=== PATIENT | male | born 2000 | race African-American/Black ===

== ENCOUNTER 2022-10-24 15:08 | Inpatient (IN) | payer MEDICAID, SELFPAY ==
[2022-10-24] VITALS (49 sets, daily range): BP systolic 104–138; BP diastolic 47–97; PULSE 122–165; RESP 16–44; TEMP 36.5; O2SAT 74–100
--- NOTE | ~2022-10-24 | XR_ITS ---
EXAMINATION: XR chest 1V portable INDICATION: Asthma exacerbation TECHNIQUE: Portable AP chest at 1512 hours COMPARISON: 07/11/2016 FINDINGS: The lungs are free of acute opacities. No pleural effusion or pneumothorax. The cardiomedia stinal silhouette is normal. The visualized bones and soft tissues are unremarkable. IMPRESSION: 1. No acute cardiopulmonary abnormality. Reviewed, dictated and finalized at location A. [employer]
--- NOTE | 2022-10-24 15:04 | ED.SOB ---
HPI - SOB/Dyspnea General Chief Complaint: Shortness of Breath/Dyspnea Stated Complaint: SOB History of Present Illness HPI Narrative: Patient is a 22-year-old male with a history of asthma presenting with shortness of breath. On arrival, patient is in respiratory distress so history is somewhat limited. Patient states that he has been increasingly dyspneic over the last several days. States it feels like his typical asthma. States he has had cold-like symptoms as well. States he recently got a new inhaler which she has been using without relief. On arrival, patient is tachypneic in moderate respiratory distress with retractions. Saturating adequately on nonrebreather. Related Data Allergies Allergy/AdvReac Type Severity Reaction Status Date / Time peanut Allergy Severe Anaphylaxis Verified 10/25/22 05:33 banana Allergy Mild Itching Verified 10/25/22 05:33 Review of Systems Review of Systems: ROS unobtainable: Yes unobtainable due to medical condition PMFSH Family History Family History (Updated 10/25/22 @ 05:37 by Abbie Morse RN) Other Cerebrovascular accident Grandparent Diabetes mellitus Social History Social History Smoking status: Former smoker Tobacco type: cigarettes Second hand tobacco smoke exposure: Yes Alcohol intake: never Substance use: never Lack of Transportation: No Lack of Food: Never True Current Housing: I Do Not Have Housing Concerned About Future Housing: No Difficulty Paying Gas/Electric Bills: No Difficulty Paying for Meds: No Currently Unemployed: YES Education: High School Diploma/GED Difficulty w/ Childcare or Family Care: No Spiritual care concerns: No Exam Narrative: GENERAL: Young male in moderate respiratory distress HEAD: Normocephalic, atraumatic. EYES: PERRLA and EOMI. ENT: Nares clear, no rhinorrhea or epistaxis. Mucous membranes moist. NECK: Supple. CHEST: Diffuse wheezing, retractions, tachypneic HEART: Tachycardic, regular rhythm. No murmur heard. Normal peripheral pulses. ABDOMEN: Soft, nontender, nondistended, normal active bowel sounds. EXTREMITIES: Normal range of motion. No edema. SKIN: Warm, dry, no rash. NEURO: No focal deficits. Alert and oriented x3. PSYCH: Normal mood and affect. Course Vital Signs Vital signs: Vital Signs Temperature 97.7 F 10/24/22 15:02 Pulse Rate 160 H 10/24/22 15:02 Respiratory Rate 28 H 10/24/22 15:02 Temperature 97.8 F 10/25/22 08:00 Pulse Rate 120 H 10/25/22 08:00 Respiratory Rate 20 10/25/22 08:00 Blood Pressure 142/67 H 10/25/22 08:00 Pulse Oximetry 96 10/25/22 08:00 Oxygen Delivery Room Air 10/25/22 08:00 MDM - SOB/Dyspnea MDM Narrative Medical decision making narrative: Patient is a 22-year-old male presenting with an asthma exacerbation. On arrival, patient is in respiratory distress with diffuse wheezing. Steroids and hour-long breathing treatment have been ordered. Patient is tachycardic as well, saturating adequately on nonrebreather. Chest x-ray with no acute abnormalities. Patient is negative for COVID and influenza. Blood work is unremarkable. Patient continues to be very tight with diffuse wheezing despite 2 breathing treatments and IV steroids. Patient will be admitted to medicine for further management for asthma exacerbation. Lab Data 10/24/22 15:44 10/24/22 15:44 Labs: Lab Results 10/24/22 10/24/22 10/24/22 Range/Units 15:13 15:44 15:44 WBC 5.9 (4.5-10.0) K/mm3 RBC 5.95 (4.6-6.20) M/mm3 Hgb 13.9 L (14.0-18.0) g/dL Hct 44.5 (42.0-52.0) % MCV 74.8 L (80-100) fl MCH 23.4 L (26-34) pg MCHC 31.2 L (32-36) g/dl RDW 12.8 (11.5-14.5) % Plt Count 275 (150-375) k/mm3 MPV 10.1 (7.4-10.4) fl Immature Gran % (Auto) 0.2 (0-0.5) % Neut % (Auto) 58.7 (45.5-73.1) % Lymph % (Auto) 26.1 (18
[2022-10-24] MEDS: IPRATROPIUM BR 0.02% INH SOLN 0.5 MG/2.5 ML VIAL INHALATION ×2 (15:10→18:08)
[2022-10-24] MEDS: ALBUTEROL SULFATE NEB 2.5 MG/3 ML INH 10 MG INHALATION ×3 (15:10→19:48)
[2022-10-24] MEDS: methylPREDNISolone SOD SUCC 125 MG VIAL IV PUSH (15:22)
[2022-10-24] MEDS: MAGNESIUM SULF 2 GM/WATER 50ML 2 GM/50 ML BAG IVPB (15:26)
--- NOTE | 2022-10-24 15:33 | PC.NURSE ---
Patient with audible wheezing currently on breathing treatment.
--- NOTE | 2022-10-24 15:49 | PC.NURSE ---
Patient more relaxed and breathing easier at this time.
[2022-10-24 15:54] LABS: Influenza A QL RT-PCR Negative (Negative); Influenza B QL RT-PCR Negative (Negative); RSV RNA, RT-PCR Negative (Negative); SARS-CoV-2 RNA PCR Negative
[2022-10-24 16:02] LABS: Basophils Percent Auto 0.2 % (0.2-1.2); Eosinophils Absolute Auto 0.1 K/mm3 (0-0.3); Hematocrit 44.5 % (42.0-52.0); Hemoglobin 13.9 g/dL (14.0-18.0); Immature Granulocyte Absolute 0.01 K/mm3 (0.00-0.031); Immature Granulocyte Percent A 0.2 % (0-0.5); Lymphocytes Absolute Auto 1.55 K/mm3 (0.9-3.2); Lymphocytes Percent Auto 26.1 % (18.3-44.2); Mean Corpuscular HGB Conc 31.2 g/dl (32-36); Mean Corpuscular Hemoglobin 23.4 pg (26-34); Mean Corpuscular Volume 74.8 fl (80-100); Mean Platelet Volume 10.1 fl (7.4-10.4); Monocytes Absolute Auto 0.8 K/mm3 (0.1-0.6); Monocytes Percent Auto 12.8 % (2.6-8.5); Neutrophils Absolute Auto 3.5 K/mm3 (1.3-6.7); Neutrophils Percent Auto 58.7 % (45.5-73.1); Platelet Count Result 275 k/mm3 (150-375); Red Blood Count 5.95 M/mm3 (4.6-6.20); Red Cell Distribution Width 12.8 % (11.5-14.5); White Blood Count 5.9 K/mm3 (4.5-10.0)
[2022-10-24] MEDS: SODIUM CHLORIDE 0.9% IV 1,000 ML 999 ML IV CONT (16:06)
[2022-10-24 16:11] LABS: Alanine Aminotransferase 16 U/L (6-50); Alkaline Phosphatase 55 U/L (38-126); Anion Gap 12 mmol/L (8-16); Aspartate Amino Transferase 28 U/L (17-59); Bilirubin,Total 0.7 mg/dL (0.2-1.3); Blood Urea Nitrogen 9 mg/dL (9-20); Calcium 9.2 mg/dL (8.4-10.2); Carbon Dioxide 29 mmol/L (22-30); Chloride 96 mmol/L (98-107); Estimated CRCL calculation 100 ml/min; Estimated Glomerular Filt Rate > 60; Glucose 136 mg/dL (65-110); Potassium 3.7 mmol/L (3.4-5.0); Sodium 137 mmol/L (137-145)
[2022-10-24 16:24] LABS: Atypical Lymphocytes Present; Giant Platelets Present; Platelet Estimate Adequate (Adequate); Schistocytes None Seen (NORMAL)
--- NOTE | 2022-10-24 16:51 | PC.NURSE ---
reg diet dinner tray ordered
--- NOTE | 2022-10-24 17:26 | PC.NURSE ---
Lung sounds bilaterally diminished, inspiratory and expiratory wheeze noted.
--- NOTE | 2022-10-24 19:52 | PCRCNOTE ---
Cont TX started. Pt stated he is feeling better but SOB at rest and with movement. Breath sounds are diminished with bilateral inspiratory/expiratory wheeze present.
--- NOTE | 2022-10-24 20:15 | PM.IMHP ---
H&P: HPI History of Present Illness Date/Time: 10/24/22 20:15 Chief Complaint: sob Narrative: This is a 22-year-old male with past medical history significant for asthma. Patient presents to the emergency room due to worsening shortness of breath for the last 3-4 days he has been using his home medication with no improvement has had some cough nonproductive of sputum, denies any fevers, rigors, chills. Patient received nebulizer treatment in emergency room however still having lot of shortness of breath. Patient is been admitted for further evaluation management and treatment. Patient tested negative for influenza A and B RSV and COVID-19. Review of Systems Review of Systems: SHORTNESS OF BREATH, WHEEZING, COUGH Constitutional: Constitutional: Denies chills, Denies fever(s), Denies malaise, Denies night sweats and Denies weakness Eyes: Eyes: Denies change in vision ENT: Denies dysphagia, Denies vertigo, Denies dizziness and Denies odynophagia Cardiovascular: Cardiovascular: Denies chest pain, Denies irregular heart rhythm, Denies lightheadedness and Denies palpitations Respiratory: Respiratory: Denies change in phlegm color, Denies chest congestion, Reports cough, Denies excessive phlegm production, Denies pain on inspiration, Reports dyspnea and Reports wheezing Gastrointestinal: Gastrointestinal: Denies abdominal pain, Denies dyspepsia, Denies heartburn, Denies diarrhea, Denies nausea and Denies vomiting Genitourinary: Genitourinary: Denies dysuria Musculoskeletal: Musculoskeletal: Denies myalgias Integumentary/Breasts: Skin/Breast: Denies rash Neurologic: Denies vertigo, Denies dizziness, Denies focal weakness and Denies Sensory deficit (Neuro) Psychiatric: Psychiatric: Reports no additional psychiatric complaints and Reports as per HPI Endocrine: Endocrine: Denies cold intolerance, Denies flushing, Denies heat intolerance, Denies polyphagia, Denies polydipsia and Denies palpitations Hematologic/Lymphatic: Hematologic/Lymphatic: Reports no additional hematologic/lymphatic complaints and Reports as per HPI Allergic/Immunologic: Allergic/Immunologic: Reports no additional allergic/immunologic complaints and Reports as per HPI Meds Home Medications and Allergies Allergies Allergy/AdvReac Type Severity Reaction Status Date / Time peanut Allergy Unknown Verified 07/11/16 01:29 Vital Signs Vital Signs - 24 hr 10/24/22 15:02 10/24/22 15:26 10/24/22 15:27 Temperature 97.7 F Pulse Rate 160 H 165 H 152 H Respiratory Rate 28 H 27 H Blood Pressure Pulse Oximetry 10/24/22 15:37 10/24/22 15:46 10/24/22 16:01 Temperature Pulse Rate 149 H 145 H 139 H Respiratory Rate 22 H 16 21 H Blood Pressure 138/90 Pulse Oximetry 100 100 100 10/24/22 16:02 10/24/22 16:15 10/24/22 16:16 Temperature Pulse Rate 138 H 138 H 141 H Respiratory Rate 21 H 22 H 22 H Blood Pressure 138/69 Pulse Oximetry 100 100 100 10/24/22 16:26 10/24/22 18:08 10/24/22 16:17 Temperature Pulse Rate 149 H 126 H 138 H Respiratory Rate 24 H 19 22 H Blood Pressure Pulse Oximetry 100 10/24/22 16:30 10/24/22 16:31 10/24/22 16:45 Temperature Pulse Rate 132 H 134 H 140 H Respiratory Rate 20 20 25 H Blood Pressure 132/72 Pulse Oximetry 100 100 10/24/22 16:46 10/24/22 17:00 10/24/22 17:01 Temperature Pulse Rate 137 H 132 H 132 H Respiratory Rate 21 H 25 H 22 H Blood Pressure 113/97 H 120/47 L Pulse Oximetry 10/24/22 17:15 10/24/22 17:16 10/24/22 17:30 Temperature Pulse Rate 129 H 129 H 128 H Respiratory Rate 20 20 20 Blood Pressure 123/67 Pulse Oximetry 98 97 74 L 10/24/22 17:31 10/24/22 17:45 10/24/22 17:46 Temperature Pulse Rate 128 H 130 H 130 H Respiratory Rate 20 22 H 22 H Blood Pressure 126/50 L 104/48 L Pulse Oximetry 96 94 10/24/22 18:02 10/24/22 18:17 10/24/22 18:32 Temperature Pulse Rate 123 H 126 H 142 H Respiratory Rate 19 24 H 21 H B
[2022-10-24 21:58] LABS: Alveolar/Arterial O2 Gradient 135.4 mmHg; Base Excess ABG -3.1 mEq/l (+/-2.0); Fractional Inspired Oxygen 40 %; HCO3 ABG 22.3 mEq/l (22.0-26.0); Oxygen Content ABG 19.5 %vol (16.0-22.0); Oxygen Saturation ABG 97.4 % (95.0-100.0); Oxyhemoglobin 96.3 % THb (90.0-100.0); PCO2 ABG 41.2 mmHg (35.0-45.0); PO2 ABG 102.4 mmHg (80.0-100.0); PO2 FiO2 Ratio Arterial Blood 2.56 %; Total Hemoglobin 14.3 g/dL (12.0-18.0); pH ABG 7.352 (7.350-7.450)
[2022-10-24 22:02] LABS: Device OTHER DEVICE; Modified Allen's Test Pass; Site Drawn RIGHT RADIAL
[2022-10-25] VITALS (14 sets, daily range): BP systolic 122–142; BP diastolic 67–70; PULSE 109–125; RESP 20–22; TEMP 36.6–37.2; O2SAT 94–100; BMI 24.1
[2022-10-25] MEDS: methylPREDNISolone SOD SUCC 125 MG VIAL 60 MG IV PUSH ×2 (00:34→06:46)
[2022-10-25] MEDS: IPRATROPIUM BR 0.02% INH SOLN 0.5 MG/2.5 ML VIAL INHALATION ×2 (02:03→07:39)
[2022-10-25] MEDS: ALBUTEROL SULFATE NEB 2.5 MG/3 ML INH INHALATION ×2 (02:03→07:39)
--- NOTE | 2022-10-25 05:18 | ADMGEN ---
This patient, Savannah Gillis, was admitted to IMU Room 202-01 at 0107. Patient/family oriented to hospital policies and general routines including ID bracelet, bed and alarms, visiting hours, pain management, procedures, bathroom and other care routines, personal items, smoking policy, room service/diet, and visiting hours. Information on how to activate the Rapid Response Team has been discussed. Patient/Family are encouraged to report perceived risks to care and to ask questions if they do not understand what they are told or what they should do.
--- NOTE | 2022-10-25 09:37 | PM.DS ---
DS: Admitting Diagnosis Discharge Date 10/25/22 Admitting Diagnosis Acute exacerbation of asthma DS: Discharge Diagnosis Discharge Diagnosis (1) Asthma with exacerbation: Code(s): J45.901 - Unspecified asthma with (acute) exacerbation Status: Acute Assessment and Plan: admit to IMU schedule breathing treatments systemic steroids (2) Uncontrolled intermittent asthma: Code(s): J45.20 - Mild intermittent asthma, uncomplicated Status: Acute Assessment and Plan: patient might need adjustment of home meds will request pulmonology consult DS: Summary Hospital Course Reason for hospitalization: Acute exacerbation of asthma Hospital Course: 22 years old male was admitted with shortness of breath. Patient was found to have acute exacerbation of asthma. Patient chest x-ray was negative. Patient oxygenation was better after treatment. No complication during the stay in the hospital. Today patient was discharged home stable condition. Status at Discharge Cognitive/behavioral status at discharge: Stable Time Spent with Patient Time attestation: Total time spent providing and/or coordinating discharge services: Exam Narrative: patient is in a stretcher Const: General: comfortable, well developed, alert, awake, in distress ( respiratory) mild and average body habitus Nutritional Appearance: average body habitus Orientation/consciousness: patient oriented x3 HENMT: Head: normal to inspection, normocephalic and atraumatic Ears: hearing grossly normal bilaterally Face/Nose/Sinus: normal facial exam Face and sinus: normal facial exam Eyes: General: appearance normal, both eyes and all related structures Pupils: Equal, round and reactive pupils present EOM: EOMs intact bilaterally Neck: Neck: full ROM, no lymphadenopathy and no JVD Thyroid: thyroid normal Lymphatic: no lymphadenopathy noted Resp: Effort & Inspection: able to speak in complete sentences, audible wheezes, Actively coughing and tachypneic Auscultation: wheezes and diminished lung sounds Cardio: Jugular venous distension: no JVD Rate: regular rate Rhythm: regular rhythm Heart sounds: S1 normal heart sound present and S2 normal heart sound present GI: Inspection: normal to inspection : General: Yes deferred Skin: Rashes: no rashes Wounds: no wounds Neuro: General: patient oriented x3 and CN's II-XI intact bilaterally Cranial nerves: Yes CN's II-XII intact bilaterally and Yes Equal, round and reactive pupils present Cognition (Neuro): normal cognition Speech: normal speech Gait exam (Neuro): Normal gait present Motor exam (neuro): 5/5 motor strength present throughout Sensory Exam: No Sensory deficit (Neuro) Extrem: General: normal to inspection, full ROM, no joint enlargement and no pedal edema DS: Data Data Completed and Pending Labs on day of discharge: Labs from last 24 hours 10/24/22 10/24/22 10/24/22 21:48 15:44 15:44 WBC 5.9 RBC 5.95 Hgb 13.9 L Hct 44.5 MCV 74.8 L MCH 23.4 L MCHC 31.2 L RDW 12.8 Plt Count 275 MPV 10.1 Immature Gran % (Auto) 0.2 Neut % (Auto) 58.7 Lymph % (Auto) 26.1 [place] % (Auto) 12.8 H Eos % (Auto) 2.0 Baso % (Auto) 0.2 Lymph # (Auto) 1.55 [place] # (Auto) 0.8 H Eos # (Auto) 0.1 Baso # (Auto) 0.0 Abs Immat Gran (auto) 0.01 Absolute Neuts (auto) 3.5 Absolute Nucleated RBC 0.0 Nucleated RBC % 0.0 Atypical Lymphocytes Present Platelet Estimate Adequate Giant Platelets Present Schistocytes None seen Puncture Site Right radial ABG pH 7.352 ABG pCO2 41.2 ABG pO2 102.4 H ABG PO2/FiO2 Ratio 2.56 ABG HCO3 22.3 ABG O2 Saturation 97.4 ABG O2 Content 19.5 ABG Base Excess -3.1 A-a Gradient 135.4 Oxyhemoglobin 96.3 Total Hemoglobin 14.3 O2 Delivery Device Other device O2 Liters/Min 5.0 FiO2 40 Sodium 137 Potassium 3.7 Chloride
[2022-10-25] MEDS: DOXYCYCLINE HYCLATE 100 MG TABLET PO (10:55)
[2022-10-25] MEDS: methylPREDNISolone (MEDROL) DOSEPACK 4 MG TABLETS 8 MG PO (10:56)
--- NOTE | 2022-10-25 12:35 | PC.NURSE ---
Discharge instructions given to pt. All questions were answered. Peripheral access x 2 removed. Pt discharged via wheelchair with staff assistance.
== END 2022-10-25 11:50 | disposition home or self-care (01) | DRG 141 ==
LOC: ANHED 20:05 → ANHIMU 10-25 02:25
PROVIDERS: Admitting Provider Internal Medicine; Emergency Provider Emergency Medicine; PCP Family Medicine; Visit Provider Internal Medicine
DX: J45.20 Mild intermittent asthma, uncomplicated (principal); Z20.822 Contact with and (suspected) exposure to COVID-19; Z82.3 Family history of stroke; Z83.3 Family history of diabetes mellitus; Z91.010 Allergy to peanuts
CPT/HCPCS: 36415; 36600; 71045; 80053; 82805; 85025; 87637; 94640; 96365; 96375; 99285; A9270; J2930; J3475; J7030